=== PATIENT | female | born 1995 | race Caucasian/White ===

== ENCOUNTER 2017-04-09 | Emergency (ER) | payer OTHER ==
--- NOTE | 2017-04-09 07:43 | ED ---
General Adult HPI - General Chief complaint: Recheck/Abnormal Lab/Rx Stated complaint: MED REACTION Time Seen by Provider: 04/09/17 07:35 Source: patient, RN notes reviewed Mode of arrival: ambulatory Limitations: no limitations - History of Present Illness Initial comments: This is a 22-year-old female presents emergency department stating that she has had seizures since she's been 9 years old. Patient states she's been on Trileptal and Keppra up until about a week and a half ago. Her doctor try to switch her to the Zonegran because of the Trileptal morning was making her nauseous and occasionally vomit. Patient states ever since she's made to switch she is been feeling like she is on the verge of having a seizure every day she's had decreased sleep and she is not eating at all. Patient states the medicine is making her feel absolutely terrible. Patient states she has had one seizure a couple of days ago and has had none since. Patient states she's had no recent fever or chills. Patient denies palpitations difficulty breathing or cough. Patient denies any abdominal pain. Patient states she normally hears things before she has a seizure but since she's been on this medication she is hearingthings constantly and she feels as though she's always on the verge of having a seizure even though she's only had one. Patient is requesting to get off this medication. - Related Data Home Medications Medication Instructions Recorded Confirmed OXcarbazepine [Trileptal] 600 mg PO HS 06/28/16 04/09/17 levETIRAcetam [Keppra] 2,500 mg PO BID 06/28/16 04/09/17 Zonisamide [Zonegran] 200 mg PO HS 04/09/17 04/09/17 clonazePAM [KlonoPIN] 0.5 mg PO HS 04/09/17 04/09/17 Previous Rx's Medication Instructions Recorded Ibuprofen [Motrin] 600 mg PO Q6HR PRN #20 tab 06/28/16 Allergies Allergy/AdvReac Type Severity Reaction Status Date / Time Penicillins Allergy Unknown Verified 04/09/17 07:36 Review of Systems ROS Statement: Those systems with pertinent positive or pertinent negative responses have been documented in the HPI. ROS Other: All systems not noted in ROS Statement are negative. Past Medical History Past Medical History: Seizure Disorder Additional Past Medical History / Comment(s): RIGHT DISLOCATIONS History of Any Multi-Drug Resistant Organisms: None Reported Past Surgical History: Tonsillectomy Additional Past Surgical History / Comment(s): RIGHT SHOULDER SURGERY Past Psychological History: No Psychological Hx Reported Smoking Status: Current every day smoker Past Alcohol Use History: None Reported Past Drug Use History: None Reported General Exam - General Exam Comments Initial Comments: GENERAL: Patient is well-developed and well-nourished. Patient is nontoxic and well- hydrated and is in no acute distress. ENT: Neck is soft and supple. No significant lymphadenopathy is noted. Oropharynx is clear. Moist mucous membranes. Neck has full range of motion without eliciting any pain. EYES: The sclera were anicteric and conjunctiva were pink and moist. Extraocular movements were intact and pupils were equal round and reactive to light. Eyelids were unremarkable. PULMONARY: Unlabored respirations. Good breath sounds bilaterally. No audible rales rhonchi or wheezing was noted. CARDIOVASCULAR: There is a regular rate and rhythm without any murmurs gallops or rubs. ABDOMEN: Soft and nontender with normal bowel sounds. SKIN: Skin is clear with no lesions or rashes and otherwise unremarkable. NEUROLOGIC: Patient is alert and oriented x3. Cranial nerves II through XII are grossly intact. Motor and sensory are also intact. Normal speech, volume and content. Symmetrical smile MUSCULOSKELETAL: Normal extremities with adequate strength and full range of motion. No lower extremity swelling or edema. No calf tenderness. LYMPHATICS: No significant lymphadenopathy is noted PSYCHIATRIC: Normal psychiatric evaluation Limitations: no limitations Course Vital Signs 04/09/17 07:33 Temperature 98.4 F Pulse Rate 75 Respiratory 18 Rate Blood Pressure 111/70 O2 Sat by Pulse 100 Oximetry Medical Decision Making - Medical Decision Making I spoke with Dr. Sarmiento he wanted the patient to start Trileptal today and after 3 days she is to stop the Zonegran Disposition Clinical Impression: Adverse drug reaction Disposition: HOME SELF-CARE Condition: Good Referrals: None,Stated [Primary Care Provider] - 1-2 days Time of Disposition: 08:21
== END 2017-04-09 08:49 | disposition home or self-care (01) ==
CPT/HCPCS: 99283

== ENCOUNTER 2017-10-12 16:27 | Emergency (ER) | payer OTHER ==
[2017-10-12 16:37] VITALS: TEMP 99
[2017-10-12] MEDS ORDERED: LORazepam 1 MG TAB PO STA (18:59)
[2017-10-12 19:13] LABS: Amorphous Sediment,Urine Occasional /hpf; Appearance,Urine Cloudy (Clear); Bacteria,Urine Rare /hpf; Bilirubin,Urine Negative (Negative); Blood,Urine Negative (Negative); Color,Urine Yellow; Glucose,Urine (UA) Negative (Negative); Ketones,Urine Negative (Negative); Leukocyte Esterase,Urine Small (Negative); Mucus,Urine Moderate /hpf; Nitrite,Urine Negative (Negative); Protein,Urine Trace (Negative); RBC,Urine 1 /hpf (0-5); Specific Gravity,Urine 1.031 (1.001-1.035); Squamous Epithelial Cell,Urine 17 /hpf (0-4); Urobilinogen,Urine <2.0 mg/dL (<2.0); WBC,Urine 28 /hpf (0-5)
[2017-10-12 19:26] LABS: Phencyclidine Screen,Urine Not Detected (NotDetected); Urn Cannabinoid Scrn Detected (NotDetected)
[2017-10-12 19:27] LABS: Amphetamine Screen,Urine Not Detected (NotDetected); Barbiturate Screen,Urine Not Detected (NotDetected); Benzodiazepines Screen,Urine Not Detected (NotDetected); Cocaine Screen,Urine Detected (NotDetected); Methadone Screen, Urine Not Detected (NotDetected); Opiate Screen,Urine Not Detected (NotDetected); Oxycodone Screen, Urine Not Detected (NotDetected); Tricyclic Antidepressant,Urine Not Detected (NotDetected)
[2017-10-12 20:00] LABS: Basophils % (A) 0 %; Eosinophils # (A) 0.2 k/uL (0-0.7); Eosinophils % (A) 2 %; HCT 38.2 % (34.0-46.0); HGB 13.2 gm/dL (11.4-16.0); Lymphocytes # (A) 2.8 k/uL (1.0-4.8); Lymphocytes % (A) 31 %; MCH 30.6 pg (25.0-35.0); MCHC 34.5 g/dL (31.0-37.0); MCV 88.8 fL (80.0-100.0); Mean Platelet Volume 6.8; Monocytes # (A) 0.4 k/uL (0-1.0); Monocytes % (A) 5 %; Neutrophils # (A) 5.4 k/uL (1.3-7.7); Neutrophils % (A) 61 %; Platelet Count 249 k/uL (150-450); RDW 12.1 % (11.5-15.5); WBC 8.9 k/uL (3.8-10.6)
[2017-10-12 20:05] LABS: Anion Gap 11 mmol/L; Blood Urea Nitrogen 9 mg/dL (7-17); Calcium 10.4 mg/dL (8.4-10.2); Carbon Dioxide 28 mmol/L (22-30); Chloride 101 mmol/L (98-107); Glucose 94 mg/dL (74-99); Potassium 4.9 mmol/L (3.5-5.1); Sodium 140 mmol/L (137-145)
--- NOTE | 2017-10-12 22:28 | ED ---
General Adult HPI - General Chief complaint: Psychiatric Symptoms Stated complaint: epilepsy & hearing voices Time Seen by Provider: 10/12/17 16:44 Source: patient Mode of arrival: ambulatory Limitations: no limitations - History of Present Illness Initial comments: 22-year-old female with past medical history of seizures presented for evaluation of auditory hallucinations. She states that she started having symptoms about 3 days ago and is hearing voices emanating from inanimate objects and also from unknown etiology. The voices are not telling her to do anything or to harm other people or herself. She recognizes that the voices are not normal and that this is a problem. She has no thoughts of suicidal or homicidal intent. She states previously having similar symptoms when she was started on a new medication 4-5 months ago however symptoms resolved after the medication was discontinued and she is unsure what the medication was. She states this is very distressing to her and she does not feel comfortable enough to be home at this time. She called one of her neurologist before coming here and states that her neurologist told her not to any lab work done or any other evaluation performed until she was called. - Related Data Home Medications Medication Instructions Recorded Confirmed OXcarbazepine [Trileptal] 600 mg PO HS 06/28/16 10/12/17 levETIRAcetam [Keppra] 2,500 mg PO BID 06/28/16 10/12/17 clonazePAM [KlonoPIN] 0.5 mg PO DAILY PRN 04/09/17 10/12/17 OXcarbazepine [Trileptal] 1,200 mg PO QAM 10/12/17 10/12/17 Allergies Allergy/AdvReac Type Severity Reaction Status Date / Time Penicillins Allergy Unknown Verified 10/12/17 17:18 Review of Systems ROS Statement: Those systems with pertinent positive or pertinent negative responses have been documented in the HPI. ROS Other: All systems not noted in ROS Statement are negative. Constitutional: Denies: fever, chills Eyes: Denies: eye pain, vision change ENT: Denies: ear pain, throat pain Respiratory: Denies: cough, dyspnea Cardiovascular: Denies: chest pain, palpitations Endocrine: Denies: fatigue, polydipsia, polyuria Gastrointestinal: Denies: abdominal pain, nausea, vomiting Genitourinary: Denies: urgency, dysuria Musculoskeletal: Denies: back pain, arthralgia Skin: Denies: rash, lesions Neurological: Denies: headache, weakness Psychiatric: Reports: anxiety, auditory hallucinations. Denies: depression, visual hallucinations, homicidal thoughts, suicidal thoughts Hematological/Lymphatic: Denies: easy bleeding, easy bruising Past Medical History Past Medical History: Seizure Disorder Additional Past Medical History / Comment(s): RIGHT DISLOCATIONS History of Any Multi-Drug Resistant Organisms: None Reported Past Surgical History: Tonsillectomy Additional Past Surgical History / Comment(s): RIGHT SHOULDER SURGERY Past Psychological History: No Psychological Hx Reported Smoking Status: Current every day smoker Past Alcohol Use History: None Reported Past Drug Use History: None Reported General Exam Limitations: no limitations General appearance: alert, in no apparent distress Head exam: Present: atraumatic, normocephalic Eye exam: Present: normal appearance. Absent: scleral icterus, conjunctival injection ENT exam: Present: normal exam, normal oropharynx Neck exam: Present: normal inspection, full ROM Respiratory exam: Present: normal lung sounds bilaterally. Absent: respiratory distress Cardiovascular Exam: Present: regular rate, normal rhythm GI/Abdominal exam: Present: soft. Absent: tenderness Rectal exam: Present: deferred Extremities exam: Present: normal inspection, full ROM Back exam: Present: normal inspection, full ROM Neurological exam: Present: alert, oriented X3 Psychiatric exam: Present: anxious. Absent: flat affect, manic, homicidal ideation, suicidal ideation Skin exam: Present: warm, dry, intact Course Vital Signs 10/12/17 10/12/17 16:34 22:28 Temperature 99.0 F 99.0 F Pulse Rate 99 77 Respiratory 16 18 Rate Blood Pressure 109/66 132/62 O2 Sat by Pulse 98 99 Oximetry Medical Decision Making - Medical Decision Making 22-year-old female presenting for evaluation of auditory hallucinations. On physical examination she appears to be in no apparent distress and vital signs are stable. Physical exam is benign and reveals no significant abnormalities. Discussed the patient with her neurologist who stated that she did not tell the patient to wait for lab work prior to coming and agreed with plan to do a formal workup and have psych come to see the patient. Labs were significant for cocaine and on reevaluation the patient states that her symptoms did start after she was using cocaine. Psych cleared the patient to be discharged home. The patient stated that she felt much better at this point and relieved at expressing the truth of the situation. She was advised to keep her appointment with her neurologist for tomorrow but to return this facility if her symptoms should worsen or persist. The patient acknowledged an understanding of all information provided and agreed with this plan of care. - Lab Data Result diagrams: 10/12/17 19:15 10/12/17 19:15 Lab Results 10/12/17 10/12/17 10/12/17 Range/Units 17:30 17:30 17:38 WBC (3.8-10.6) k/uL RBC (3.80-5.40) m/uL Hgb (11.4-16.0) gm/dL Hct (34.0-46.0) % MCV (80.0-100.0) fL MCH (25.0-35.0) pg MCHC (31.0-37.0) g/dL RDW (11.5-15.5) % Plt Count (150-450) k/uL Neutrophils % % Lymphocytes % % Monocytes % % Eosinophils % % Basophils % % Neutrophils # (1.3-7.7) k/uL Lymphocytes # (1.0-4.8) k/uL Monocytes # (0-1.0) k/uL Eosinophils # (0-0.7) k/uL Basophils # (0-0.2) k/uL Sodium (137-145) mmol/L Potassium (3.5-5.1) mmol/L Chloride (98-107) mmol/L Carbon Dioxide (22-30) mmol/L Anion Gap mmol/L BUN (7-17) mg/dL Creatinine (0.52-1.04) mg/dL Est GFR (CKD-EPI)AfAm (>60 ml/min/1.73 sqM) Est GFR (CKD-EPI)NonAf (>60 ml/min/1.73 sqM) Glucose (74-99) mg/dL Calcium (8.4-10.2) mg/dL Urine Color Yellow Urine Appearance Cloudy H (Clear) Urine pH 7.0 (5.0-8.0) Ur Specific [place] 1.031 (1.001-1.035) Urine Protein Trace H (Negative) Urine Glucose (UA) Negative (Negative) Urine Ketones Negative (Negative) Urine Blood Negative (Negative) Urine Nitrite Negative (Negative) Urine Bilirubin Negative (Negative) Urine Urobilinogen <2.0 (<2.0) mg/dL Ur Leukocyte Esterase Small H (Negative) Urine RBC 1 (0-5) /hpf Urine WBC 28 H (0-5) /hpf Ur Squamous Epith Cells 17 H (0-4) /hpf Amorphous Sediment Occasional H (None) /hpf Urine Bacteria Rare H (None) /hpf Urine Mucus Moderate H (None) /hpf Urine HCG, Qual Not Detected (Not Detectd) Urine Opiates Screen Not Detected (NotDetected) Ur Oxycodone Screen Not Detected (NotDetected) Urine Methadone Screen Not Detected (NotDetected) Ur Propoxyphene Screen Not Detected (NotDetected) Ur Barbiturates Screen Not Detected (NotDetected) U Tricyclic Antidepress Not Detected (NotDetected) Ur Phencyclidine Scrn Not Detected (NotDetected) Ur Amphetamines Screen Not Detected (NotDetected) U Methamphetamines Scrn Not Detected (NotDetected) U Benzodiazepines Scrn Not Detected (NotDetected) Urine Cocaine Screen Detected H (NotDetected) U Marijuana (THC) Screen Detected H (NotDetected) 10/12/17 10/12/17 Range/Units 19:15 19:15 WBC 8.9 (3.8-10.6) k/uL RBC 4.30 (3.80-5.40) m/uL Hgb 13.2 (11.4-16.0) gm/dL Hct 38.2 (34.0-46.0) % MCV 88.8 (80.0-100.0) fL MCH 30.6 (25.0-35.0) pg MCHC 34.5 (31.0-37.0) g/dL RDW 12.1 (11.5-15.5) % Plt Count 249 (150-450) k/uL Neutrophils % 61 % Lymphocytes % 31 % Monocytes % 5 % Eosinophils % 2 % Basophils % 0 % Neutrophils # 5.4 (1.3-7.7) k/uL Lymphocytes # 2.8 (1.0-4.8) k/uL Monocytes # 0.4 (0-1.0) k/uL Eosinophils # 0.2 (0-0.7) k/uL Basophils # 0.0 (0-0.2) k/uL Sodium 140 (137-145) mmol/L Potassium 4.9 (3.5-5.1) mmol/L Chloride 101 (98-107) mmol/L Carbon Dioxide 28 (22-30) mmol/L Anion Gap 11 mmol/L BUN 9 (7-17) mg/dL Creatinine 0.60 (0.52-1.04) mg/dL Est GFR (CKD-EPI)AfAm >90 (>60 ml/min/1.73 sqM) Est GFR (CKD-EPI)NonAf >90 (>60 ml/min/1.73 sqM) Glucose 94 (74-99) mg/dL Calcium 10.4 H (8.4-10.2) mg/dL Urine Color Urine Appearance (Clear) Urine pH (5.0-8.0) Ur Specific [place] (1.001-1.035) Urine Protein (Negative) Urine Glucose (UA) (Negative) Urine Ketones (Negative) Urine Blood (Negative) Urine Nitrite (Negative) Urine Bilirubin (Negative) Urine Urobilinogen (<2.0) mg/dL Ur Leukocyte Esterase (Negative) Urine RBC (0-5) /hpf Urine WBC (0-5) /hpf Ur Squamous Epith Cells (0-4) /hpf Amorphous Sediment (None) /hpf Urine Bacteria (None) /hpf Urine Mucus (None) /hpf Urine HCG, Qual (Not Detectd) Urine Opiates Screen (NotDetected) Ur Oxycodone Screen (NotDetected) Urine Methadone Screen (NotDetected) Ur Propoxyphene Screen (NotDetected) Ur Barbiturates Screen (NotDetected) U Tricyclic Antidepress (NotDetected) Ur Phencyclidine Scrn (NotDetected) Ur Amphetamines Screen (NotDetected) U Methamphetamines Scrn (NotDetected) U Benzodiazepines Scrn (NotDetected) Urine Cocaine Screen (NotDetected) U Marijuana (THC) Screen (NotDetected) Disposition Clinical Impression: Cocaine abuse, Auditory hallucinations, Acute anxiety Disposition: HOME SELF-CARE Condition: Stable Instructions: Hallucinations (ED) Referrals: None,Stated [Primary Care Provider] - 1-2 days Time of Disposition: 22:28
[2017-10-12 22:30] VITALS: BP 132/62; PULSE 77; RESP 18
== END 2017-10-12 22:39 | disposition home or self-care (01) ==
LOC: EC 16:27
DX: F14.10 Cocaine abuse, uncomplicated (principal); R44.0 Auditory hallucinations; F41.9 Anxiety disorder, unspecified; G40.909 Epilepsy, unspecified, not intractable, without status epilepticus; F17.200 Nicotine dependence, unspecified, uncomplicated; Z79.899 Other long term (current) drug therapy; Z88.0 Allergy status to penicillin
CPT/HCPCS: 36415; 80048; 80177; 80183; 80306; 81001; 81025; 85025; 99285

== ENCOUNTER 2019-03-09 08:28 | Emergency (ER) | payer BC, OTHER ==
[2019-03-09] MEDS ORDERED: PROPOFOL 10 MG/ML 20 ML VIAL IV ONE (08:48)
--- NOTE | 2019-03-09 08:52 | ED ---
General Adult HPI <Juancarlos Garcia - Last Filed: 03/09/19 09:56> - General Source: patient, RN notes reviewed Mode of arrival: ambulatory Limitations: no limitations <Hector Reynaga - Last Filed: 03/09/19 10:03> - General Chief complaint: Extremity Injury, Upper Stated complaint: Shoulder Injury Time Seen by Provider: 03/09/19 08:37 - History of Present Illness Initial comments: 24-year-old female presents to the emergency department for a chief complaint of dislocation of the right shoulder. Patient states that she was playing with her son when she felt her right shoulder dislocate. States this happened several times prior to this. States she had surgery on it several years ago to help w ith this but unfortunately still has dislocations. Denies any other injuries.Patient has no other complaints at this time including shortness of breath, chest pain, abdominal pain, nausea or vomiting, headache, or visual changes. (Hector Reynaga) - Related Data Home Medications Medication Instructions Recorded Confirmed OXcarbazepine [Trileptal] 600 mg PO HS 06/28/16 10/12/17 levETIRAcetam [Keppra] 2,500 mg PO BID 06/28/16 10/12/17 OXcarbazepine [Trileptal] 1,200 mg PO QAM 10/12/17 10/12/17 Perampanel [Fycompa] 2 mg PO BID 01/27/18 01/27/18 Allergies Allergy/AdvReac Type Severity Reaction Status Date / Time Penicillins Allergy Unknown Verified 03/09/19 08:33 Review of Systems ROS Other: All systems not noted in ROS Statement are negative. <Juancarlos Garcia - Last Filed: 03/09/19 09:56> ROS Other: All systems not noted in ROS Statement are negative. <Hector Reynaga - Last Filed: 03/09/19 10:03> ROS Statement: Those systems with pertinent positive or pertinent negative responses have been documented in the HPI. Past Medical History Past Medical History: Seizure Disorder Additional Past Medical History / Comment(s): RIGHT DISLOCATIONS History of Any Multi-Drug Resistant Organisms: None Reported Past Surgical History: Tonsillectomy Additional Past Surgical History / Comment(s): RIGHT SHOULDER SURGERY, brain surgery for seizure disorders Past Psychological History: No Psychological Hx Reported Smoking Status: Former smoker Past Alcohol Use History: None Reported Past Drug Use History: Marijuana <Hector Reynaga P - Last Filed: 03/09/19 10:03> General Exam Limitations: no limitations General appearance: alert, in no apparent distress Head exam: Present: atraumatic, normocephalic, normal inspection Eye exam: Present: normal appearance, PERRL, EOMI. Absent: scleral icterus, conjunctival injection, periorbital swelling ENT exam: Present: normal exam, mucous membranes moist Neck exam: Present: normal inspection, full ROM. Absent: tenderness, meningismus, lymphadenopathy Respiratory exam: Present: normal lung sounds bilaterally. Absent: respiratory distress, wheezes, rales, rhonchi, stridor Cardiovascular Exam: Present: regular rate, normal rhythm, normal heart sounds. Absent: bradycardia, tachycardia, irregular rhythm Extremities exam: Present: normal capillary refill (Capillary refill less than 2 seconds, radial pulse 2+ the right upper extremity.). Absent: full ROM (Patient unable to move right shoulder due to pain) <RonnellHector P - Last Filed: 03/09/19 10:03> Course Vital Signs 03/09/19 03/09/19 03/09/19 08:33 09:37 09:45 Temperature 97.9 F Pulse Rate 74 69 67 Respiratory 18 15 14 Rate Blood Pressure 109/72 114/92 116/82 O2 Sat by Pulse 96 98 99 Oximetry 03/09/19 09:52 Temperature Pulse Rate 73 Respiratory 14 Rate Blood Pressure 111/72 O2 Sat by Pulse 99 Oximetry Procedures - Orthopedic Joint Reduction Joint #1 Consent Obtained: verbal consent, written consent Side: right Joint Reduction Location: shoulder Analgesia: procedural sedation Shoulder Technique Used (if applicable): external rotation Post-Reduction Neuro Exam: intact Post-Reduction Vascular Exam: intact Post Reduction X-Ray Obtained: Yes Post Reduction X-Ray Results: reduced Splint Applied: Yes Patient Tolerated Procedure: well - Procedural Sedation Procedural Sedation Start Time: 09:37 Procedural Sedation Stop Time: 09:52 Indications: fracture/dislocation reduction ASA Class: I Mallampati Airway Score: 1 Time of Last PO Intake: 06:00 Preparation: monitoring tech applied, pulse oximeter, capnometry used, supplemental O2 applied, suction/airway equipment at bedside, IV secured IV Propofol Dose (mgs): 100 Complications: none Patient Tolerated Procedure: well <Juancarlos Garcia - Last Filed: 03/09/19 09:56> Medical Decision Making <Hector Reynaga - Last Filed: 03/09/19 10:03> - Medical Decision Making 24-year-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 Patient has had this happen several times before. Patient was playing with her son when it dislocated. On exam Norvasc status is intact in the right upper extremity. Shoulder does appear dislocated. I did attempt to reduce this without sedation however patient did not tolerate. X-ray shows an anterior subcoracoid glenohumeral joint dislocation. Image reviewed. After hCG was obtained and was negative patient was consciously sedated and shoulder was reduced without any difficulty or complication. Shoulder immobilizer was applied. She was monitored after conscious sedation and then discharged home in stable condition. Patient believes she follows with [facility]. She will follow up with him and return here she has any worsening symptoms. (Hector Reynaga) - Lab Data Lab Results 03/09/19 Range/Units 08:54 Urine HCG, Qual Not Detected (Not Detectd) Disposition <Juancarlos Garcia - Last Filed: 03/09/19 09:56> Is patient prescribed a controlled substance at d/c from ED?: No Time of Disposition: 10:03 <Hector Reynaga - Last Filed: 03/09/19 10:03> Clinical Impression: Dislocation of shoulder region Disposition: HOME SELF-CARE Condition: Good Instructions (If sedation given, give patient instructions): Moderate Sedation (ED), Shoulder Dislocation (ED) Additional Instructions: Please use shoulder immobilizer. Please follow-up with orthopedics in one to 2 days. Please return to the emergency department if you have any worsening symptoms. Referrals: Trenton Fuentes MD [STAFF PHYSICIAN] - 1-2 days Norma Sanches MD [STAFF PHYSICIAN] - 1-2 days
--- NOTE | 2019-03-09 09:32 | XR ---
EXAMINATION TYPE: XR shoulder complete RT DATE OF EXAM: 03/09/2019 COMPARISON: 06/28/2016 HISTORY: 24-year-old female shoulder pain, issues with dislocating shoulder, surgery 7 years ago. TECHNIQUE: 3 views FINDINGS: There is an anterior, subcoracoid glenohumeral joint dislocation. There may be mild joint space narro wing at the AC joint. No acute fracture. IMPRESSION: Anterior subcoracoid glenohumeral joint dislocation.
--- NOTE | 2019-03-09 10:01 | XR ---
EXAMINATION TYPE: XR shoulder limited RT DATE OF EXAM: 03/09/2019 COMPARISON: Earlier today HISTORY: 24-year-old female with pain, exam post reduction TECHNIQUE: Portable AP view FINDINGS: Interval reduction of the glenoid humeral joint. There may be a shallow Hill-Sachs deformity. Some cy stic change along the anterior glenoid was present on the 2016 exam as well. IMPRESSION: 1. Interval reduction of the glenohumeral joint. There may be a shallow Hill-Sachs deformity. 2. Some cystic change along the anterior glenoid was present previously and could be postsurgical or chronic posttraumatic.
[2019-03-09 10:50] VITALS: BP 114/77; PULSE 69; RESP 11; TEMP 98.2
== END 2019-03-09 10:42 | disposition home or self-care (01) ==
LOC: EC 08:28
DX: M24.411 Recurrent dislocation, right shoulder (principal); G40.909 Epilepsy, unspecified, not intractable, without status epilepticus; Z98.890 Other specified postprocedural states; Z88.0 Allergy status to penicillin; Z79.899 Other long term (current) drug therapy; Z87.891 Personal history of nicotine dependence; Y93.72 Activity, wrestling
CPT/HCPCS: 81025; 73020; 73030; 99283; 99152; 23650; J2704

== ENCOUNTER → 2019-07-23 | Outpatient (CLI) | payer BC, OTHER ==
[2019-07-23 12:49] LABS: HCT 36.4 % (34.0-46.0); HGB 12.6 gm/dL (11.4-16.0); MCH 31.9 pg (25.0-35.0); MCHC 34.6 g/dL (31.0-37.0); MCV 92.2 fL (80.0-100.0); Mean Platelet Volume 7.3; Platelet Count 254 k/uL (150-450); RBC 3.95 m/uL (3.80-5.40); RDW 12.3 % (11.5-15.5); WBC 8.4 k/uL (3.8-10.6)
[2019-07-23 19:42] LABS: African American GFR (CKD) 148.9 (60.0-200.0); Non-African American GFR(CKD) 128.5 (60.0-200.0)
[2019-07-23 20:10] LABS: Hepatitis B Surface Antigen Non-Reactive (Non-Reactive)
[2019-07-24 13:35] LABS: C. trachomatis,PCR Negative (Neg,Equiv); Chlamydia trachomatis Source Urine; N. gonorrhoeae,PCR Negative (Neg,Equiv); Neisseria Source Urine
== END | disposition home or self-care (01) ==
LOC: LABWHC1 11:50
PROVIDERS: ATTEND Obstetrics & Gynecology
DX: Z34.81 Encounter for supervision of other normal pregnancy, first trimester (principal); Z3A.00 Weeks of gestation of pregnancy not specified
CPT/HCPCS: 36415; 82565; 82947; 85027; 86762; 86780; 86850; 86900; 86901; 87340; 87491; 87591

== ENCOUNTER → 2019-10-26 | Outpatient (CLI) | payer BC, MEDICARE ==
--- NOTE | 2019-10-26 12:13 | US ---
EXAMINATION TYPE: Transabdominal DATE OF EXAM: 10/26/2019 9:07 AM COMPARISON: NONE CLINICAL HISTORY: O20.0 Threatened . Intermittent bleeding x couple weeks, 2, para 1 EXAM PERFORMED: Transabdominal (TA) EXAM MEASUREMENTS: GESTATIONAL AGE / DATING Physician Established: Not established yet Dates by LMP: Unknown Dates by First Scan: This is 1st scan Dates by Current Scan for: (8 weeks/4 days) EDC: 06/02/2020 MATERNAL ANATOMY Uterus: 10.2 x 6.0 x 7.7cm Right Ovary: 3.3 x 2.2 x 2.9cm Left Ovary: 2.4 x 1.5 x 1.4cm Post CDS / Adnexa: small amount of free fluid in posterior cul de sac Presence of free fluid: yes Presence of corpus luteal cyst: right ovary: 2.2 x 1.9 x 1.8cm Presence of subchorionic bleed: 2.7 x 0.7 x 1.7cm GESTATION / SURVEY CRL: 2.0cm (8 weeks/4 days) Yolk Sac (normal less than 6mm): 3.8 Heart Rate: 171 bpm Rhythm: Normal IUP: Viable IUP Date of LMP: Unknown Beta HcG (if available): Not available at time of exam. Viable single IUP measuring 8 weeks 4 days with a heart rate of 171bpm and an estimated delivery date of 06/02/2020. Crescentic hypoechoic focus measuring 2.7 x 0.7 x 1.7 cm noted as described. IMPRESSION: Viable single IUP measuring 8 weeks 4 days with a heart rate of 171bpm and an estimated delivery date of 06/02/2020. Small subchorionic hemorrhage suspected.
== END | disposition home or self-care (01) ==
LOC: RADUSWWP 08:46
PROVIDERS: ATTEND Family Medicine
DX: Z3A.08 8 weeks gestation of pregnancy (principal)
CPT/HCPCS: 76801

== ENCOUNTER 2020-03-19 19:52 | Emergency (ER) | payer BC ==
[2020-03-19] MEDS ORDERED: MORPHINE SULFATE 4 MG/ML SYRINGE IVP STA (20:17)
--- NOTE | 2020-03-19 20:20 | ED ---
General Adult HPI <AjayBa - Last Filed: 03/19/20 21:22> - General Source: patient, family, RN notes reviewed, old records reviewed Mode of arrival: ambulatory Limitations: no limitations <Joan Taylor - Last Filed: 03/19/20 21:31> - General Chief complaint: Extremity Injury, Upper Stated complaint: R shoulder injury Time Seen by Provider: 03/19/20 20:09 - History of Present Illness Initial comments: Patient is a 25-year-old female who presents emergency department today for evaluation for right shoulder dislocation. Patient reports that she has had history of frequent dislocations. She states that the last time this occurred was a few months ago. She states each time she's had it dislocated she's required sedation and have it reduced. Patient states that she did have previous shoulder surgery but it did not seem to help with the dislocations. Patient reports that she lifted her arm above her head today which caused him to dislocate. Patient states that she has no other complaints. She states that she is currently on her menstrual cycle and not . (Joan aTylor) - Related Data Home Medications Medication Instructions Recorded Confirmed OXcarbazepine [Trileptal] 600 mg PO HS 06/28/16 10/12/17 levETIRAcetam [Keppra] 2,500 mg PO BID 06/28/16 10/12/17 OXcarbazepine [Trileptal] 1,200 mg PO QAM 10/12/17 10/12/17 Perampanel [Fycompa] 2 mg PO BID 01/27/18 01/27/18 Allergies Allergy/AdvReac Type Severity Reaction Status Date / Time Penicillins Allergy Unknown Verified 03/19/20 20:08 Review of Systems ROS Other: All systems not noted in ROS Statement are negative. <Ba Moss - Last Filed: 03/19/20 21:22> ROS Other: All systems not noted in ROS Statement are negative. <Joan Taylor - Last Filed: 03/19/20 21:31> ROS Statement: Those systems with pertinent positive or pertinent negative responses have been documented in the HPI. Past Medical History Past Medical History: Seizure Disorder Additional Past Medical History / Comment(s): RIGHT DISLOCATIONS History of Any Multi-Drug Resistant Organisms: None Reported Past Surgical History: Tonsillectomy Additional Past Surgical History / Comment(s): RIGHT SHOULDER SURGERY, brain surgery for seizure disorders Past Psychological History: No Psychological Hx Reported Smoking Status: Never smoker Past Alcohol Use History: None Reported Past Drug Use History: Marijuana <BrandonJoan - Last Filed: 03/19/20 21:31> General Exam Limitations: no limitations General appearance: alert, in no apparent distress Head exam: Present: atraumatic, normocephalic, normal inspection Eye exam: Present: normal appearance, PERRL, EOMI. Absent: scleral icterus, conjunctival injection, periorbital swelling ENT exam: Present: normal exam, mucous membranes moist Neck exam: Present: normal inspection. Absent: tenderness, meningismus, lymphadenopathy Respiratory exam: Present: normal lung sounds bilaterally. Absent: respiratory distress, wheezes, rales, rhonchi, stridor Cardiovascular Exam: Present: regular rate, normal rhythm, normal heart sounds. Absent: systolic murmur, diastolic murmur, rubs, gallop, clicks GI/Abdominal exam: Present: soft, normal bowel sounds. Absent: distended, tenderness, guarding, rebound, rigid Extremities exam: Present: normal inspection, full ROM, normal capillary refill. Absent: tenderness, pedal edema, joint swelling, calf tenderness Right Shoulder Exam: Present: dislocation. Absent: normal inspection Upper Arm exam: Present: normal inspection, full ROM Elbow exam: Present: normal inspection, full ROM Forearm Wrist exam: Present: normal inspection, full ROM Hand Wrist exam: Present: normal inspection, full ROM Neuro motor exam: Present: wrist extension intact Vascular: Present: normal capillary refill Back exam: Present: normal inspection Neurological exam: Present: alert, oriented X3, CN II-XII intact Psychiatric exam: Present: normal affect, normal mood Skin exam: Present: warm, dry, intact, normal color. Absent: rash <Mariah Taylorily - Last Filed: 03/19/20 21:31> Course Vital Signs 03/19/20 03/19/20 03/19/20 20:04 21:00 21:05 Temperature 99.1 F Pulse Rate 69 70 60 Respiratory 20 18 18 Rate Blood Pressure 119/88 137/76 117/68 O2 Sat by Pulse 99 100 100 Oximetry 03/19/20 03/19/20 03/19/20 21:10 21:15 21:20 Temperature Pulse Rate 59 L 72 70 Respiratory 18 18 18 Rate Blood Pressure 116/71 125/78 129/81 O2 Sat by Pulse 97 98 98 Oximetry Procedures - Procedural Sedation Procedural Sedation Start Time: 21:04 Procedural Sedation Stop Time: 21:08 Indications: fracture/dislocation reduction ASA Class: I Mallampati Airway Score: 1 Preparation: phototypesetting equipment monitor applied, pulse oximeter, capnometry used, supplemental O2 applied, reversal agents at bedside, suction/airway equipment at bedside, IV secured IV Propofol Dose (mgs): 130 Complications: none Patient Tolerated Procedure: well <Ba Moss - Last Filed: 03/19/20 21:22> - Orthopedic Joint Reduction Joint #1 Side: right Joint Reduction Location: shoulder Analgesia: procedural sedation Technique Used: traction/counter-traction Post-Reduction Neuro Exam: intact Post-Reduction Vascular Exam: intact Post Reduction X-Ray Obtained: Yes Post Reduction X-Ray Results: reduced Splint Applied: Yes (sling) Patient Tolerated Procedure: well, no complications <Joan Taylor - Last Filed: 03/19/20 21:31> - Procedural Sedation Additional Comments: He did require 2 doses of propofol 60 mg initially followed by 70 mg that she was not sedated enough for the procedure the second one did accomplish is the procedure well without difficulty. Patient tolerated well she did awaken at 2108 a reevaluated. 0 she is awake alert oriented 3 (Ba Moss) Medical Decision Making - Radiology Data Radiology results: report reviewed <Joan Taylor - Last Filed: 03/19/20 21:31> - Medical Decision Making 25-year-old female with recurrent right shoulder dislocations. She presented today with shoulder dislocation after looking arm above the head. She would not allow reduction without sedation. Patient was procedurally sedated and shoulder was easily reduced. She is placed in a sling. Advised orthopedic follow-up. Advise close return parameters. Patient understands treatment plan. (Joan Taylor) - Radiology Data Shoulder x-ray showed recurrent anterior glenohumeral joint dislocation. Improved positioning of the humeral head relative to glenoid cavity and frontal be consistent with successful interval reduction of the anterior glenohumeral joint dislocation. No fractures noted. Overlying breath strep is present. (Joan Taylor) Disposition <Ba Moss - Last Filed: 03/19/20 21:22> Is patient prescribed a controlled substance at d/c from ED?: No Time of Disposition: 21:30 <BrandonJoan - Last Filed: 03/19/20 21:31> Clinical Impression: Recurrent shoulder dislocation Disposition: HOME SELF-CARE Condition: Good Instructions (If sedation given, give patient instructions): Moderate Sedation (ED), Shoulder Dislocation (ED) Additional Instructions: Patient advised to have follow-up with orthopedic. Remain in the splint until seen by orthopedic. No heavy lifting or overhead movements. Recommended sleeping a recliner chair. Referrals: Jeremy Fields MD [REFERRING] - 1-2 days Mike Hubbard MD [STAFF PHYSICIAN] - 1-2 days
[2020-03-19] MEDS ORDERED: KETOROLAC 15 MG/ML 1 ML VIAL IVP STA (20:48)
--- NOTE | 2020-03-19 20:49 | XR ---
EXAMINATION TYPE: XR shoulder complete RT DATE OF EXAM: 03/19/2020 CLINICAL HISTORY: History of multiple dislocations and surgery with new pain after suspected dislocat ion today. TECHNIQUE: Three views of the right shoulder are obtained. COMPARISON: Prior right shoulder x-ray March 09, 2019. FINDINGS: There is inferior medial anterior positioning of the humeral head relative to glenoid cavi ty. No acute fracture is seen. Stable mild to moderate narrowing acromial navicular joint. The visua lized ribs are intact and unremarkable. IMPRESSION: There is recurrent anterior glenohumeral joint dislocation.
[2020-03-19] MEDS: PROPOFOL 10 MG/ML 20 ML VIAL IV ONE ×2 (21:03→21:07)
--- NOTE | 2020-03-19 21:18 | XR ---
EXAMINATION TYPE: XR shoulder limited RT DATE OF EXAM: 03/19/2020 COMPARISON: Right shoulder x-ray earlier today. HISTORY: Anterior dislocation status post reduction. TECHNIQUE: Single frontal view right shoulder. FINDINGS: Improved positioning of humeral head relative to glenoid cavity on the frontal view consist ent with successful interval reduction of the anterior glenohumeral joint dislocation. No fracture is noted. Overlying bra strap is present. IMPRESSION: As above
[2020-03-19 21:52] VITALS: BP 121/80; PULSE 72; RESP 20; TEMP 98.1
== END 2020-03-19 21:48 | disposition home or self-care (01) ==
LOC: EC 19:52
DX: M24.411 Recurrent dislocation, right shoulder (principal); G40.909 Epilepsy, unspecified, not intractable, without status epilepticus; Z79.899 Other long term (current) drug therapy; Z88.0 Allergy status to penicillin; X50.1XXA Overexertion from prolonged static or awkward postures, initial encounter
CPT/HCPCS: 73020; 73030; 99284; 96374; 23650; J1885; J2704

== ENCOUNTER → 2020-04-25 | Outpatient (CLI) | payer BC, OTHER ==
--- NOTE | 2020-05-20 10:08 | P.CEMON ---
Diagnosis Palpitations Event monitor shows sinus mechanism Sinus tachycardia No arrhythmias
--- NOTE | 2020-05-20 11:23 | EM ---
Diagnosis Palpitations Event monitor shows sinus mechanism Sinus tachycardia No arrhythmias MTDD
== END | disposition home or self-care (01) ==
LOC: RADECHMAIN 11:57
PROVIDERS: ATTEND Family Medicine
DX: R00.0 Tachycardia, unspecified (principal)
CPT/HCPCS: 93270

== ENCOUNTER 2020-07-15 12:35 | Emergency (ER) | payer BC, OTHER ==
[2020-07-15 12:40] VITALS: TEMP 98.9
--- NOTE | 2020-07-15 13:12 | ED ---
General Adult HPI - General Chief complaint: Nausea/Vomiting/Diarrhea Stated complaint: SOB, nausea Source: patient Mode of arrival: wheelchair Limitations: no limitations - History of Present Illness Initial comments: 25-year-old female with past history of seizure disorder who presents emergency Department with reported headache, chest pain, cough, nausea and vomiting. Patient is concerned for elevated. Denies any fevers or chills. No concern for . Denies previous history of cardiac disease. No abdominal pain. Denies any changes in her bowel or bladder habits. No other alleviating, precipitating or modifying factors - Related Data Home Medications Medication Instructions Recorded Confirmed OXcarbazepine [Trileptal] 600 mg PO DAILY 06/28/16 07/15/20 OXcarbazepine [Trileptal] 1,200 mg PO HS 10/12/17 07/15/20 Brivaracetam [Briviact] 200 mg PO DAILY 07/15/20 07/15/20 PARoxetine [Paxil] 10 mg PO DAILY 07/15/20 07/15/20 Perampanel [Fycompa] 4 mg PO DAILY 07/15/20 07/15/20 Perampanel [Fycompa] 6 mg PO HS 07/15/20 07/15/20 QUEtiapine [SEROquel] 100 mg PO HS 07/15/20 07/15/20 Previous Rx's Medication Instructions Recorded Famotidine [Pepcid] 20 mg PO BID #28 tablet 07/15/20 Ondansetron Odt [Zofran Odt] 4 mg PO Q8HR PRN #10 tab 07/15/20 Allergies Allergy/AdvReac Type Severity Reaction Status Date / Time Penicillins Allergy Unknown Verified 07/15/20 13:36 Review of Systems ROS Statement: Those systems with pertinent positive or pertinent negative responses have been documented in the HPI. ROS Other: All systems not noted in ROS Statement are negative. Past Medical History Past Medical History: Seizure Disorder Additional Past Medical History / Comment(s): RIGHT DISLOCATIONS History of Any Multi-Drug Resistant Organisms: None Reported Past Surgical History: Tonsillectomy Additional Past Surgical History / Comment(s): RIGHT SHOULDER SURGERY, brain surgery for seizure disorders Past Psychological History: No Psychological Hx Reported Smoking Status: Never smoker Past Alcohol Use History: None Reported Past Drug Use History: Marijuana General Exam Limitations: no limitations Course Vital Signs 07/15/20 07/15/20 12:37 14:59 Temperature 98.9 F Pulse Rate 64 87 Respiratory 18 16 Rate Blood Pressure 126/76 126/79 O2 Sat by Pulse 98 99 Oximetry EKG Findings - EKG Comments: EKG Findings:: EKG demonstrates normal sinus rhythm the rate of 68. CA interval 132. QRS 108. QTC of 416. No acute ST segment elevations or depressions concerning for ischemic changes Medical Decision Making - Medical Decision Making Upon arrival patient is placed into room 14. A thorough history and physical exam was performed. Peripheral IV is established. The patient was given a liter bolus of normal saline informal grams of Zofran. Laboratory studies are conducted and reviewed. Sodium mildly low at 131. Urinalysis demonstrates 2+ ketones. Rare bacteria. This is sent for urine culture. Covid and influenza are negative. Chest x-ray demonstrates no acute process. Results are discussed with the patient. I will send a test for PCR. She is instructed to quarantine until these results come back. I will send the patient a prescription of Zofran to the pharmacy. Also requesting reflux medications the patient is given a prescription for Pepcid. She needs to follow-up with her primary care doctor in 2-4 days for reevaluation. Return to the emergency room for any new or worsenin g symptoms. Patient was in agreement with the treatment plan was discharged home in stable condition - Lab Data Result diagrams: 07/15/20 13:30 07/15/20 13:58 Lab Results 07/15/20 07/15/20 07/15/20 Range/Units 13:30 13:30 13:30 WBC 6.2 (3.8-10.6) k/uL RBC 4.36 (3.80-5.40) m/uL Hgb 13.4 (11.4-16.0) gm/dL Hct 38.8 (34.0-46.0) % MCV 88.9 (80.0-100.0) fL MCH 30.7 (25.0-35.0) pg MCHC 34.5 (31.0-37.0) g/dL RDW 12.1 (11.5-15.5) % Plt Count 285 (150-450) k/uL MPV 7.5 Neutrophils % 56 % Lymphocytes % 31 % Monocytes % 6 % Eosinophils % 4 % Basophils % 1 % Neutrophils # 3.5 (1.3-7.7) k/uL Lymphocytes # 1.9 (1.0-4.8) k/uL Monocytes # 0.4 (0-1.0) k/uL Eosinophils # 0.2 (0-0.7) k/uL Basophils # 0.0 (0-0.2) k/uL Sodium (137-145) mmol/L Potassium (3.5-5.1) mmol/L Chloride (98-107) mmol/L Carbon Dioxide (22-30) mmol/L Anion Gap mmol/L BUN (7-17) mg/dL Creatinine (0.52-1.04) mg/dL Est GFR (CKD-EPI)AfAm (>60 ml/min/1.73 sqM) Est GFR (CKD-EPI)NonAf (>60 ml/min/1.73 sqM) Glucose (74-99) mg/dL Calcium (8.4-10.2) mg/dL Total Bilirubin (0.2-1.3) mg/dL AST (14-36) U/L ALT (4-34) U/L Alkaline Phosphatase (38-126) U/L Total Protein (6.3-8.2) g/dL Albumin (3.5-5.0) g/dL Lipase (23-300) U/L Urine Color Urine Appearance (Clear) Urine pH (5.0-8.0) Ur Specific [place] (1.001-1.035) Urine Protein (Negative) Urine Glucose (UA) (Negative) Urine Ketones (Negative) Urine Blood (Negative) Urine Nitrite (Negative) Urine Bilirubin (Negative) Urine Urobilinogen (<2.0) mg/dL Ur Leukocyte Esterase (Negative) Urine RBC (0-5) /hpf Urine WBC (0-5) /hpf Ur Squamous Epith Cells (0-4) /hpf Urine Bacteria (None) /hpf Urine Mucus (None) /hpf Urine HCG, Qual (Not Detectd) Coronavirus (PCR) Not Detected (Not Detectd) Influenza Type A RNA Not Detected (Not Detectd) Influenza Type B (PCR) Not Detected (Not Detectd) 07/15/20 07/15/20 07/15/20 Range/Units 13:35 13:35 13:58 WBC (3.8-10.6) k/uL RBC (3.80-5.40) m/uL Hgb (11.4-16.0) gm/dL Hct (34.0-46.0) % MCV (80.0-100.0) fL MCH (25.0-35.0) pg MCHC (31.0-37.0) g/dL RDW (11.5-15.5) % Plt Count (150-450) k/uL MPV Neutrophils % % Lymphocytes % % Monocytes % % Eosinophils % % Basophils % % Neutrophils # (1.3-7.7) k/uL Lymphocytes # (1.0-4.8) k/uL Monocytes # (0-1.0) k/uL Eosinophils # (0-0.7) k/uL Basophils # (0-0.2) k/uL Sodium 131 L (137-145) mmol/L Potassium 4.0 (3.5-5.1) mmol/L Chloride 100 (98-107) mmol/L Carbon Dioxide 25 (22-30) mmol/L Anion Gap 6 mmol/L BUN 6 L (7-17) mg/dL Creatinine 0.55 (0.52-1.04) mg/dL Est GFR (CKD-EPI)AfAm >90 (>60 ml/min/1.73 sqM) Est GFR (CKD-EPI)NonAf >90 (>60 ml/min/1.73 sqM) Glucose 97 (74-99) mg/dL Calcium 9.2 (8.4-10.2) mg/dL Total Bilirubin 0.5 (0.2-1.3) mg/dL AST 20 (14-36) U/L ALT 12 (4-34) U/L Alkaline Phosphatase 56 (38-126) U/L Total Protein 7.8 (6.3-8.2) g/dL Albumin 4.5 (3.5-5.0) g/dL Lipase 53 (23-300) U/L Urine Color Yellow Urine Appearance Clear (Clear) Urine pH 6.5 (5.0-8.0) Ur Specific [place] 1.024 (1.001-1.035) Urine Protein Trace H (Negative) Urine Glucose (UA) Negative (Negative) Urine Ketones 2+ H (Negative) Urine Blood Small H (Negative) Urine Nitrite Negative (Negative) Urine Bilirubin Negative (Negative) Urine Urobilinogen <2.0 (<2.0) mg/dL Ur Leukocyte Esterase Trace H (Negative) Urine RBC 1 (0-5) /hpf Urine WBC 1 (0-5) /hpf Ur Squamous Epith Cells 5 H (0-4) /hpf Urine Bacteria Rare H (None) /hpf Urine Mucus Few H (None) /hpf Urine HCG, Qual Not Detected (Not Detectd) Coronavirus (PCR) (Not Detectd) Influenza Type A RNA (Not Detectd) Influenza Type B (PCR) (Not Detectd) Disposition Clinical Impression: Nausea & vomiting Disposition: HOME SELF-CARE Condition: Stable Instructions (If sedation given, give patient instructions): Acute Nausea and Vomiting (ED) Additional Instructions: We will call you with positive results of the Covid test. Take the nausea medications and the reflux medications as directed. Follow-up with your doctor in 2-4 days. Return to the emergency room for any new or worsening symptoms Prescriptions: Famotidine [Pepcid] 20 mg PO BID #28 tablet Ondansetron Odt [Zofran Odt] 4 mg PO Q8HR PRN #10 tab PRN Reason: Nausea Is patient prescribed a controlled substance at d/c from ED?: No Referrals: Oumou Montiel MD [Primary Care Provider] - 1-2 days Time of Disposition: 14:51
[2020-07-15] MEDS ORDERED: ONDANSETRON 4 MG/2 ML VIAL IVP STA (13:23)
[2020-07-15] MEDS ORDERED: SODIUM CHLORIDE 0.9% 1,000 ML IV STA (13:23)
[2020-07-15 13:41] LABS: Basophils % (A) 1 %; Eosinophils # (A) 0.2 k/uL (0-0.7); Eosinophils % (A) 4 %; HCT 38.8 % (34.0-46.0); HGB 13.4 gm/dL (11.4-16.0); Lymphocytes # (A) 1.9 k/uL (1.0-4.8); Lymphocytes % (A) 31 %; MCH 30.7 pg (25.0-35.0); MCHC 34.5 g/dL (31.0-37.0); MCV 88.9 fL (80.0-100.0); Mean Platelet Volume 7.5; Monocytes # (A) 0.4 k/uL (0-1.0); Monocytes % (A) 6 %; Neutrophils # (A) 3.5 k/uL (1.3-7.7); Neutrophils % (A) 56 %; Platelet Count 285 k/uL (150-450); RBC 4.36 m/uL (3.80-5.40); RDW 12.1 % (11.5-15.5); WBC 6.2 k/uL (3.8-10.6)
[2020-07-15 14:10] LABS: Appearance,Urine Clear (Clear); Bacteria,Urine Rare /hpf; Bilirubin,Urine Negative (Negative); Blood,Urine Small (Negative); Color,Urine Yellow; Glucose,Urine (UA) Negative (Negative); Ketones,Urine 2+ (Negative); Leukocyte Esterase,Urine Trace (Negative); Mucus,Urine Few /hpf; Nitrite,Urine Negative (Negative); PH, Urine 6.5 (5.0-8.0); Protein,Urine Trace (Negative); RBC,Urine 1 /hpf (0-5); Specific Gravity,Urine 1.024 (1.001-1.035); Squamous Epithelial Cell,Urine 5 /hpf (0-4); Urobilinogen,Urine <2.0 mg/dL (<2.0); WBC,Urine 1 /hpf (0-5)
[2020-07-15 14:20] LABS: ALT 12 U/L (4-34); AST 20 U/L (14-36); African American GFR (CKD) >90 (>60 ml/min/1.73 sqM); Albumin 4.5 g/dL (3.5-5.0); Alkaline Phosphatase 56 U/L (38-126); Anion Gap 6 mmol/L; Blood Urea Nitrogen 6 mg/dL (7-17); Calcium 9.2 mg/dL (8.4-10.2); Carbon Dioxide 25 mmol/L (22-30); Chloride 100 mmol/L (98-107); Glucose 97 mg/dL (74-99); Lipase 53 U/L (23-300); Non-African American GFR(CKD) >90 (>60 ml/min/1.73 sqM); Sodium 131 mmol/L (137-145); Total Bilirubin 0.5 mg/dL (0.2-1.3); Total Protein 7.8 g/dL (6.3-8.2)
--- NOTE | 2020-07-15 14:29 | XR ---
EXAMINATION TYPE: XR chest 1V portable DATE OF EXAM: 07/15/2020 COMPARISON: 11/28/2019 INDICATION: Shortness of breath TECHNIQUE: Single frontal view of the chest is obtained. FINDINGS: The heart size is normal. The pulmonary vasculature is normal. The lungs are clear. IMPRESSION: 1. No acute pulmonary process.
[2020-07-15 15:00] VITALS: BP 126/79; PULSE 87; RESP 16
== END 2020-07-15 15:02 | disposition home or self-care (01) ==
LOC: EC 12:35
DX: R11.2 Nausea with vomiting, unspecified (principal); R51.9 Headache, unspecified; R05 Cough; R07.9 Chest pain, unspecified; G40.909 Epilepsy, unspecified, not intractable, without status epilepticus; Z20.828 Contact with and (suspected) exposure to other viral communicable diseases; Z79.899 Other long term (current) drug therapy; Z88.0 Allergy status to penicillin
CPT/HCPCS: 36415; 93005; 80053; 83690; 85025; 81001; 81025; 87502; 87635; 71045; 99285; 96374; 96361; U0003; J2405

== ENCOUNTER 2020-08-12 12:46 | Emergency (ER) | payer MEDICARE, BC, OTHER ==
[2020-08-12 12:51] VITALS: RESP 18
[2020-08-12] MEDS ORDERED: KETOROLAC 15 MG/ML 1 ML VIAL IVP STA (13:27)
[2020-08-12] MEDS ORDERED: ONDANSETRON 4 MG/2 ML VIAL IVP STA (13:27)
[2020-08-12] MEDS ORDERED: diphenhydrAMINE 50 MG/ML 1 ML VIAL IVP STA (13:27)
[2020-08-12] MEDS ORDERED: SODIUM CHLORIDE 0.9% 1,000 ML IV STA (13:27)
--- NOTE | 2020-08-12 14:23 | CT ---
EXAMINATION TYPE: CT brain wo con DATE OF EXAM: 08/12/2020 COMPARISON: INDICATION: Headache DLP: 1118.4 mGycm, Automated exposure control for dose reduction was used. CONTRAST: None CT of the brain is performed utilizing 3 mm thick sections through the posterior fossa and 3 mm thick sections through the remaining calvarium. Study is performed within 24 hours of arrival to the hosp [facility]. No abnormal hyperdensity is present to suggest an acute intracranial hemorrhage. No mass lesion is evident. Post Surgical changes are within the anterior inferior left middle cranial fossa. Temporal lobe resection may be present. There is a left temporal parietal craniotomy defect. No acute infarcts are evident. Ventricles and sulci are appropriate for the patient age. Paranasal sinuses and mastoid air cells within the [id number] are clear. IMPRESSIONS: 1. No acute intracranial process.
--- NOTE | 2020-08-12 14:35 | ED ---
Headache HPI - General Chief Complaint: Headache Stated Complaint: headache Time Seen by Provider: 08/12/20 13:05 Mode of arrival: ambulatory Limitations: no limitations - History of Present Illness Initial Comments: Patient is a 25-year-old female presenting to the emergency Department with complaints of a headache for the past 3 days. Patient states she does history of seizures, she received brain surgery at [facility] in 2018 in effort to stop the seizures. Patient states she has not had a seizure since her surgery. She has had intermittent headaches though. She has only had a few follow-ups with her neurosurgeon. Patient states she did speak with their office today and they recommended her going into the ER for evaluation. She states her headaches are mostly on the left side of her head where her surgery was, does extend into her eye sometimes. She does admit to some mild nausea no vomiting. She denies any fever or chills. No dizziness, she denies being . Patient states she does try ibuprofen at home and it does help with the headache but then seems that the headache comes right back. She has no further complaints at this time. Upon arrival to the ER, her vital signs are stable. - Related Data Home Medications Medication Instructions Recorded Confirmed OXcarbazepine [Trileptal] 600 mg PO DAILY 06/28/16 08/12/20 OXcarbazepine [Trileptal] 1,200 mg PO HS 10/12/17 08/12/20 Brivaracetam [Briviact] 200 mg PO HS 07/15/20 08/12/20 PARoxetine [Paxil] 10 mg PO DAILY 07/15/20 08/12/20 Perampanel [Fycompa] 4 mg PO DAILY 07/15/20 08/12/20 Perampanel [Fycompa] 6 mg PO HS 07/15/20 08/12/20 QUEtiapine [SEROquel] 100 mg PO HS 07/15/20 08/12/20 Previous Rx's Medication Instructions Recorded Famotidine [Pepcid] 20 mg PO BID #28 tablet 07/15/20 Ondansetron Odt [Zofran Odt] 4 mg PO Q8HR PRN #10 tab 07/15/20 Allergies Allergy/AdvReac Type Severity Reaction Status Date / Time Penicillins Allergy Unknown Verified 08/12/20 13:53 Childhood Review of Systems ROS Statement: Those systems with pertinent positive or pertinent negative responses have been documented in the HPI. ROS Other: All systems not noted in ROS Statement are negative. Past Medical History Past Medical History: Seizure Disorder Additional Past Medical History / Comment(s): RIGHT DISLOCATIONS History of Any Multi-Drug Resistant Organisms: None Reported Past Surgical History: Tonsillectomy Additional Past Surgical History / Comment(s): RIGHT SHOULDER SURGERY, brain surgery for seizure disorders 2018 Past Psychological History: No Psychological Hx Reported Smoking Status: Never smoker Past Alcohol Use History: None Reported Past Drug Use History: Marijuana General Exam - General Exam Comments Initial Comments: GENERAL: Patient is well-developed and well-nourished. Patient is nontoxic and in no acute distress. HEAD: Atraumatic, normocephalic. EYES: Pupils equal round and reactive to light, extraocular movements intact, sclera anicteric, conjunctiva are normal. Eyelids were unremarkable. ENT: TMs normal, nares patent, oropharynx clear without exudates. Moist mucous membranes. NECK: Normal range of motion, supple without lymphadenopathy or JVD. LUNGS: Unlabored respirations. Breath sounds clear to auscultation bilaterally and equal. No wheezes rales or rhonchi. HEART: Regular rate and rhythm without murmurs, rubs or gallops. ABDOMEN: Soft, nontender, normoactive bowel sounds. No guarding, no rebound. No masses appreciated. : Deferred MUSCULOSKELETAL: Normal extremities with adequate strength and normal range of motion, no pitting or edema. No clubbing or cyanosis. NEUROLOGICAL: Patient is alert and oriented x 3. Motor and sensory are also intact. Cranial nerves II through XII grossly intact. Symmetrical smile. Normal speech, normal gait. PSYCH: Normal mood, normal affect. SKIN: Warm, Dry, normal turgor, no rashes or lesions noted. Limitations: no limitations Course Vital Signs 08/12/20 08/12/20 12:46 14:40 Temperature 99 F 98.0 F Pulse Rate 79 67 Respiratory 18 18 Rate Blood Pressure 119/78 117/69 O2 Sat by Pulse 98 100 Oximetry Medical Decision Making - Medical Decision Making Patient is a 25-year-old female here with a headache for 3 days. She doesn't history of seizures, they did stop in 2018 after she had brain surgery arrival [facility]. She is still on her seizure medication. Her vital signs are stable. Her exam is unremarkable, no acute deficits. I did do CT of her brain, there is no acute no cranial process, there is evidence of temporal lobe resection. He received fluids, typical migraine cocktail and reports improvement in her headache, she states her headache is currently gone, 0 out of 10. I discussed these findings with her. Patient will follow up with her neurologist. Patient is stable for discharge. Patient is in agreement with this plan of care. Return parameters were discussed with the patient and they verbalized understanding. Case discussed with Dr. abad. Disposition Clinical Impression: Headache, Nausea Disposition: HOME SELF-CARE Condition: Stable Instructions (If sedation given, give patient instructions): Acute Headache (ED) Additional Instructions: Please return to the Emergency Department if symptoms worsen or any other concerns. I recommend following up with your neurologist. May continue with either Tylenol or Motrin for future headaches. Is patient prescribed a controlled substance at d/c from ED?: No Referrals: Oumou Montiel MD [Primary Care Provider] - 1-2 days
[2020-08-12 14:45] VITALS: BP 117/69; PULSE 67; TEMP 98
== END 2020-08-12 14:45 | disposition home or self-care (01) ==
LOC: EC 12:46
DX: R51.9 Headache, unspecified (principal); R11.0 Nausea; G40.909 Epilepsy, unspecified, not intractable, without status epilepticus; Z79.899 Other long term (current) drug therapy; Z88.0 Allergy status to penicillin
CPT/HCPCS: 70450; 99284; 96374; 96375 ×2; 96361; J1200; J2405; J1885

== ENCOUNTER 2020-08-27 14:37 | Emergency (ER) | payer MEDICARE, BC, OTHER ==
[2020-08-27] MEDS ORDERED: SODIUM CHLORIDE 0.9% 1,000 ML IV STA (14:46)
[2020-08-27] MEDS ORDERED: ONDANSETRON 4 MG/2 ML VIAL IVP STA (14:46)
--- NOTE | 2020-08-27 14:54 | ED ---
Dizziness HPI - General Chief Complaint: Dizziness Stated Complaint: Vomiting, chest pain Time Seen by Provider: 08/27/20 14:42 Source: patient, RN notes reviewed Mode of arrival: ambulatory Limitations: no limitations - History of Present Illness Initial Comments: Patient is a 25-year-old female that presents to emergency department complaining of one day of nausea vomiting diarrhea and some dizziness. She noted that she does have a history of brain surgery and takes several antiseizure medications. She noted that last night after eating dinner she became nauseous and vomited several times. She noted that she tried to wait it out throughout the night but this morning woke up was nauseous and vomiting and has had several bouts of diarrhea. She'll the last time she came to the ER for the same complaint she was dehydrated. She stated that she only drank 3-4 bottles of water over the last several days. She was in no apparent distress or pain while sitting up in bed interview and exam. She did note some mental fogginess and shakiness. She denied any severe anxiety in the last couple days.. This that she is taking all her medications as prescribed and is following up with her other doctors. He denied any chest pain shortness of br eath constipation hematemesis hematochezia fever fatigue chills. - Related Data Home Medications Medication Instructions Recorded Confirmed OXcarbazepine [Trileptal] 600 mg PO DAILY 06/28/16 08/12/20 OXcarbazepine [Trileptal] 1,200 mg PO HS 10/12/17 08/12/20 Brivaracetam [Briviact] 200 mg PO HS 07/15/20 08/12/20 PARoxetine [Paxil] 10 mg PO DAILY 07/15/20 08/12/20 Perampanel [Fycompa] 4 mg PO DAILY 07/15/20 08/12/20 Perampanel [Fycompa] 6 mg PO HS 07/15/20 08/12/20 QUEtiapine [SEROquel] 100 mg PO HS 07/15/20 08/12/20 Previous Rx's Medication Instructions Recorded Famotidine [Pepcid] 20 mg PO BID #28 tablet 07/15/20 Ondansetron Odt [Zofran Odt] 4 mg PO Q8HR PRN #10 tab 07/15/20 Allergies Allergy/AdvReac Type Severity Reaction Status Date / Time Penicillins Allergy Unknown Verified 08/27/20 14:40 Childhood Review of Systems ROS Statement: Those systems with pertinent positive or pertinent negative responses have been documented in the HPI. ROS Other: All systems not noted in ROS Statement are negative. Past Medical History Past Medical History: Seizure Disorder Additional Past Medical History / Comment(s): RIGHT DISLOCATIONS History of Any Multi-Drug Resistant Organisms: None Reported Past Surgical History: Tonsillectomy Additional Past Surgical History / Comment(s): RIGHT SHOULDER SURGERY, brain surgery for seizure disorders 2017 Past Psychological History: No Psychological Hx Reported Smoking Status: Never smoker Past Alcohol Use History: None Reported Past Drug Use History: Marijuana General Exam Limitations: no limitations General appearance: alert, in no apparent distress Head exam: Present: atraumatic, normocephalic, normal inspection Eye exam: Present: normal appearance, PERRL, EOMI. Absent: scleral icterus, conjunctival injection, periorbital swelling ENT exam: Present: normal exam, mucous membranes moist Neck exam: Present: normal inspection. Absent: tenderness, meningismus, lymphadenopathy Respiratory exam: Present: normal lung sounds bilaterally. Absent: respiratory distress, wheezes, rales, rhonchi, stridor Cardiovascular Exam: Present: regular rate, normal rhythm, normal heart sounds. Absent: systolic murmur, diastolic murmur, rubs, gallop, clicks GI/Abdominal exam: Present: soft, normal bowel sounds. Absent: distended, tenderness, guarding, rebound, rigid Extremities exam: Present: normal inspection, full ROM, normal capillary refill. Absent: tenderness, pedal edema, joint swelling, calf tenderness Back exam: Present: normal inspection Neurological exam: Present: alert, oriented X3, CN II-XII intact Psychiatric exam: Present: normal affect, normal mood, anxious Skin exam: Present: warm, dry, intact, normal color. 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 Normal sinus rhythm, incomplete right bundle branch block, nonspecific T-wave abnormality, abnormal ECG. Medical Decision Making - Medical Decision Making [age] female complaining of dizziness nausea vomiting diarrhea. EKG, necktie maker, 1 L of normal saline bolus, antirheumatic, basic labs ordered. Orthostatic vitals ordered due to patient drinking 3-4 bottles of water over the last several days. Labs and orthostatic vitals unremarkable. Case discussed with Dr. Munroe, was decided the patient could discharge home - Lab Data Result diagrams: 08/27/20 15:20 08/27/20 15:20 Lab Results 08/27/20 08/27/20 08/27/20 Range/Units 15:20 15:20 15:20 WBC 8.5 (3.8-10.6) k/uL RBC 4.65 (3.80-5.40) m/uL Hgb 14.2 (11.4-16.0) gm/dL Hct 42.0 (34.0-46.0) % MCV 90.3 (80.0-100.0) fL MCH 30.4 (25.0-35.0) pg MCHC 33.7 (31.0-37.0) g/dL RDW 12.1 (11.5-15.5) % Plt Count 303 (150-450) k/uL MPV 6.8 Neutrophils % 70 % Lymphocytes % 20 % Monocytes % 5 % Eosinophils % 4 % Basophils % 1 % Neutrophils # 6.0 (1.3-7.7) k/uL Lymphocytes # 1.7 (1.0-4.8) k/uL Monocytes # 0.4 (0-1.0) k/uL Eosinophils # 0.3 (0-0.7) k/uL Basophils # 0.1 (0-0.2) k/uL Sodium 133 L (137-145) mmol/L Potassium 4.1 (3.5-5.1) mmol/L Chloride 97 L (98-107) mmol/L Carbon Dioxide 22 (22-30) mmol/L Anion Gap 14 mmol/L BUN 8 (7-17) mg/dL Creatinine 0.58 (0.52-1.04) mg/dL Est GFR (CKD-EPI)AfAm >90 (>60 ml/min/1.73 sqM) Est GFR (CKD-EPI)NonAf >90 (>60 ml/min/1.73 sqM) Glucose 96 (74-99) mg/dL Calcium 10.4 H (8.4-10.2) mg/dL Total Bilirubin 0.5 (0.2-1.3) mg/dL AST 23 (14-36) U/L ALT 14 (4-34) U/L Alkaline Phosphatase 69 (38-126) U/L Total Protein 9.7 H (6.3-8.2) g/dL Albumin 5.6 H (3.5-5.0) g/dL Amylase 81 (30-110) U/L Lipase 69 (23-300) U/L Urine Color Yellow Urine Appearance Cloudy H (Clear) Urine pH 6.5 (5.0-8.0) Ur Specific [place] 1.030 (1.001-1.035) Urine Protein 1+ H (Negative) Urine Glucose (UA) Negative (Negative) Urine Ketones 3+ H (Negative) Urine Blood Trace H (Negative) Urine Nitrite Negative (Negative) Urine Bilirubin Negative (Negative) Urine Urobilinogen <2.0 (<2.0) mg/dL Ur Leukocyte Esterase Large H (Negative) Urine RBC 5 (0-5) /hpf Urine WBC 16 H (0-5) /hpf Ur Squamous Epith Cells 10 H (0-4) /hpf Urine Mucus Many H (None) /hpf Urine HCG, Qual (Not Detectd) 08/27/20 Range/Units 15:20 WBC (3.8-10.6) k/uL RBC (3.80-5.40) m/uL Hgb (11.4-16.0) gm/dL Hct (34.0-46.0) % MCV (80.0-100.0) fL MCH (25.0-35.0) pg MCHC (31.0-37.0) g/dL RDW (11.5-15.5) % Plt Count (150-450) k/uL MPV Neutrophils % % Lymphocytes % % Monocytes % % Eosinophils % % Basophils % % Neutrophils # (1.3-7.7) k/uL Lymphocytes # (1.0-4.8) k/uL Monocytes # (0-1.0) k/uL Eosinophils # (0-0.7) k/uL Basophils # (0-0.2) k/uL Sodium (137-145) mmol/L Potassium (3.5-5.1) mmol/L Chloride (98-107) mmol/L Carbon Dioxide (22-30) mmol/L Anion Gap mmol/L BUN (7-17) mg/dL Creatinine (0.52-1.04) mg/dL Est GFR (CKD-EPI)AfAm (>60 ml/min/1.73 sqM) Est GFR (CKD-EPI)NonAf (>60 ml/min/1.73 sqM) Glucose (74-99) mg/dL Calcium (8.4-10.2) mg/dL Total Bilirubin (0.2-1.3) mg/dL AST (14-36) U/L ALT (4-34) U/L Alkaline Phosphatase (38-126) U/L Total Protein (6.3-8.2) g/dL Albumin (3.5-5.0) g/dL Amylase (30-110) U/L Lipase (23-300) U/L Urine Color Urine Appearance (Clear) Urine pH (5.0-8.0) Ur Specific [place] (1.001-1.035) Urine Protein (Negative) Urine Glucose (UA) (Negative) Urine Ketones (Negative) Urine Blood (Negative) Urine Nitrite (Negative) Urine Bilirubin (Negative) Urine Urobilinogen (<2.0) mg/dL Ur Leukocyte Esterase (Negative) Urine RBC (0-5) /hpf Urine WBC (0-5) /hpf Ur Squamous Epith Cells (0-4) /hpf Urine Mucus (None) /hpf Urine HCG, Qual Not Detected (Not Detectd) - Radiology Data Radiology results: report reviewed, image reviewed Normal chest no change Disposition Clinical Impression: Dehydration, Nausea & vomiting, Abdominal pain Disposition: HOME SELF-CARE Condition: Stable Instructions (If sedation given, give patient instructions): Dizziness (ED) Additional Instructions: Please return to the Emergency Department if symptoms worsen or any other concerns. Follow-up with primary care 1-2 days. Drink plenty of fluids, eat a bland diet until nausea and vomiting subsided. Take [id number] pain medication as needed for pain management. Is patient prescribed a controlled substance at d/c from ED?: No Referrals: Oumou Montiel MD [Primary Care Provider] - 1-2 days Time of Disposition: 16:59
[2020-08-27 15:37] LABS: Basophils # (A) 0.1 k/uL (0-0.2); Basophils % (A) 1 %; Eosinophils # (A) 0.3 k/uL (0-0.7); Eosinophils % (A) 4 %; HGB 14.2 gm/dL (11.4-16.0); Lymphocytes # (A) 1.7 k/uL (1.0-4.8); Lymphocytes % (A) 20 %; MCH 30.4 pg (25.0-35.0); MCHC 33.7 g/dL (31.0-37.0); MCV 90.3 fL (80.0-100.0); Mean Platelet Volume 6.8; Monocytes # (A) 0.4 k/uL (0-1.0); Monocytes % (A) 5 %; Neutrophils % (A) 70 %; Platelet Count 303 k/uL (150-450); RBC 4.65 m/uL (3.80-5.40); RDW 12.1 % (11.5-15.5); WBC 8.5 k/uL (3.8-10.6)
[2020-08-27 15:51] LABS: ALT 14 U/L (4-34); AST 23 U/L (14-36); African American GFR (CKD) >90 (>60 ml/min/1.73 sqM); Albumin 5.6 g/dL (3.5-5.0); Alkaline Phosphatase 69 U/L (38-126); Amylase 81 U/L (30-110); Anion Gap 14 mmol/L; Blood Urea Nitrogen 8 mg/dL (7-17); Calcium 10.4 mg/dL (8.4-10.2); Carbon Dioxide 22 mmol/L (22-30); Chloride 97 mmol/L (98-107); Glucose 96 mg/dL (74-99); Lipase 69 U/L (23-300); Non-African American GFR(CKD) >90 (>60 ml/min/1.73 sqM); Potassium 4.1 mmol/L (3.5-5.1); Sodium 133 mmol/L (137-145); Total Bilirubin 0.5 mg/dL (0.2-1.3); Total Protein 9.7 g/dL (6.3-8.2)
[2020-08-27 15:58] VITALS: RESP 18
[2020-08-27 15:58] LABS: Appearance,Urine Cloudy (Clear); Bilirubin,Urine Negative (Negative); Blood,Urine Trace (Negative); Color,Urine Yellow; Glucose,Urine (UA) Negative (Negative); Ketones,Urine 3+ (Negative); Leukocyte Esterase,Urine Large (Negative); Mucus,Urine Many /hpf; Nitrite,Urine Negative (Negative); PH, Urine 6.5 (5.0-8.0); Protein,Urine 1+ (Negative); RBC,Urine 5 /hpf (0-5); Squamous Epithelial Cell,Urine 10 /hpf (0-4); Urobilinogen,Urine <2.0 mg/dL (<2.0); WBC,Urine 16 /hpf (0-5)
--- NOTE | 2020-08-27 16:55 | XR ---
EXAMINATION TYPE: XR chest 1V portable DATE OF EXAM: 08/27/2020 COMPARISON: 07/15/2020 HISTORY: Dizziness TECHNIQUE: FINDINGS: Heart and mediastinum are normal. Lungs are clear. Diaphragm is normal. Bony thorax appears normal. IMPRESSION: Normal chest. No change.
[2020-08-27 17:23] VITALS: BP 116/89; PULSE 73; TEMP 98.6
== END 2020-08-27 17:21 | disposition home or self-care (01) ==
LOC: SUPCPDRO 14:37 → EC 14:37
DX: R11.2 Nausea with vomiting, unspecified (principal); E86.0 Dehydration; R10.9 Unspecified abdominal pain; R19.7 Diarrhea, unspecified; G40.909 Epilepsy, unspecified, not intractable, without status epilepticus; Z79.899 Other long term (current) drug therapy; Z88.0 Allergy status to penicillin
CPT/HCPCS: 36415; 93005; 80053; 82150; 83690; 85025; 81001; 81025; 87086; 71045; 99284; 96374; 96361; J2405

== ENCOUNTER 2024-10-20 21:33 | Emergency (ER) | payer OTHER ==
[2024-10-20 21:37] VITALS: RESP 18; TEMP 98.1
--- NOTE | 2024-10-20 21:50 | ED ---
Upper Extremity HPI - General Chief Complaint: Extremity Injury, Upper Stated Complaint: rt shoulder pain Time Seen by Provider: 10/20/24 21:39 Source: patient, RN notes reviewed Mode of arrival: ambulatory Limitations: no limitations - History of Present Illness Initial Comments: 29-year-old female presenting to the emergency department with right shoulder pain. Patient states that it feels like her right shoulder is dislocated. Patient that she was walking through [place] when she felt her shoulder pop out of place. 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 Patient states that she had surgery while she was 14 years old for recurrent shoulder dislocations. Patient states that she has not follow-up with assistance specialist within the past 2 years. Endorses mild paresthesias over the anterior right shoulder. No other acute complaints at this time. - Related Data Home Medications Medication Instructions Recorded Confirmed OXcarbazepine [Trileptal] 600 mg PO DAILY 06/28/16 08/12/20 OXcarbazepine [Trileptal] 1,200 mg PO HS 10/12/17 08/12/20 Brivaracetam [Briviact] 200 mg PO HS 07/15/20 08/12/20 PARoxetine [Paxil] 10 mg PO DAILY 07/15/20 08/12/20 Perampanel [Fycompa] 4 mg PO DAILY 07/15/20 08/12/20 Perampanel [Fycompa] 6 mg PO HS 07/15/20 08/12/20 QUEtiapine [SEROquel] 100 mg PO HS 07/15/20 08/12/20 Previous Rx's Medication Instructions Recorded Famotidine [Pepcid] 20 mg PO BID #28 tablet 07/15/20 Ondansetron Odt [Zofran Odt] 4 mg PO Q8HR PRN #10 tab 07/15/20 Allergies Allergy/AdvReac Type Severity Reaction Status Date / Time Penicillins Allergy Unknown Verified 10/20/24 21:37 Childhood Review of Systems ROS Statement: Those systems with pertinent positive or pertinent negative responses have been documented in the HPI. ROS Other: All systems not noted in ROS Statement are negative. Past Medical History Past Medical History: Seizure Disorder Additional Past Medical History / Comment(s): RIGHT DISLOCATIONS History of Any Multi-Drug Resistant Organisms: None Reported Past Surgical History: Tonsillectomy Additional Past Surgical History / Comment(s): RIGHT SHOULDER SURGERY, brain surgery for seizure disorders 2018 Past Psychological History: No Psychological Hx Reported Smoking Status: Never smoker Past Alcohol Use History: None Reported Past Drug Use History: Marijuana General Exam Limitations: no limitations General appearance: alert, in no apparent distress Neck exam: Present: normal inspection. Absent: tenderness, meningismus, lymphadenopathy Respiratory exam: Present: normal lung sounds bilaterally. Absent: respiratory distress, wheezes, rales, rhonchi, stridor Cardiovascular Exam: Present: regular rate, normal rhythm, normal heart sounds. Absent: systolic murmur, diastolic murmur, rubs, gallop, clicks GI/Abdominal exam: Present: soft, normal bowel sounds. Absent: distended, tenderness, guarding, rebound, rigid Right Shoulder Exam: Present: tenderness, deformity, dislocation. Absent: normal inspection, full ROM, laceration, ecchymosis Hand Wrist exam: Present: normal inspection, full ROM Neuro motor exam: Present: wrist extension intact, thumb opposition intact Vascular: Present: normal capillary refill, radial pulse (2+). Absent: vascular compromise Back exam: Present: normal inspection Course Vital Signs 10/20/24 10/20/24 10/20/24 21:35 22:40 22:45 Temperature 98.1 F Pulse Rate 80 97 78 Respiratory 18 18 18 Rate Blood Pressure 146/89 150/85 135/105 O2 Sat by Pulse 97 99 99 Oximetry 10/20/24 10/20/24 10/20/24 22:50 22:55 23:00 Temperature Pulse Rate 90 98 93 Respiratory 18 18 18 Rate Blood Pressure 135/83 117/72 111/77 O2 Sat by Pulse 97 98 96 Oximetry 10/20/24 10/20/24 23:15 23:27 Temperature Pulse Rate 106 H 104 H Respiratory 18 18 Rate Blood Pressure 123/85 118/80 O2 Sat by Pulse 94 L 94 L Oximetry Procedures - Orthopedic Joint Reduction Joint #1 Consent Obtained: verbal consent Side: right Joint Reduction Location: shoulder Analgesia: procedural sedation (propofol) Shoulder Technique Used (if applicable): traction/counter-traction Post-Reduction Neuro Exam: intact Post-Reduction Vascular Exam: intact Post Reduction X-Ray Obtained: Yes Post Reduction X-Ray Results: reduced Splint Applied: No (sling) Patient Tolerated Procedure: well Medical Decision Making - Medical Decision Making Was pt. sent in by a medical professional or institution (KAJAL Estrada, ONLINE PROGRAM COORDINATOR, urgent care, hospital, or [facility]...) When possible be specific @ -No Did you speak to anyone other than the patient for history (EMS, parent, family, police, friend...)? What history was obtained from this source @ -No Did you review nursing and triage notes (agree or disagree)? Why? @ -I reviewed and agree with nursing and triage notes Were old charts reviewed (outside hosp., previous admission, EMS record, old EKG, old radiological studies, urgent care reports/EKG's, [facility] records)? Report findings @ -No old charts were reviewed Differential Diagnosis (chest pain, altered mental status, abdominal pain women, abdominal pain men, vaginal bleeding, weakness, fever, dyspnea, syncope, headache, dizziness, GI bleed, back pain, seizure, CVA, palpatations, mental health, musculoskeletal)? @ -Differential Musculoskeletal Muscular strain, contusion, ligament sprain, fracture, arthritis, septic arthritis, bursitis, cellulitis, muscle spasm, nerve compression, DVT, arterial occlusion, herpes zoster, electrolyte abnormality, tumor.... This is not meant to be in all inclusive list EKG interpreted by me (3pts min.). @ -None X-rays interpreted by me (1pt min.). @ -X-ray of the right shoulder reveals a dislocation of the right humeral head from the glenoid Postreduction x-ray right shoulder relocated in correct anatomical position CT interpreted by me (1pt min.). @ -None done U/S interpreted by me (1pt. min.). @ -None done What testing was considered but not performed or refused? (CT, X-rays, U/S, labs)? Why? @ -None What meds were considered but not given or refused? Why? @ -None Did you discuss the management of the patient with other professionals (professionals i.e. KAJAL Estrada, ONLINE PROGRAM COORDINATOR, lab, RT, psych nurse, manager social media, content director, teacher, transportation security officer, bilingual patient support caseworker)? Give summary @ -No Was smoking cessation discussed for >3mins.? @ -No Was critical care preformed (if so, how long)? @ -No Were there social determinants of health that impacted care today? How? (Homelessness, low income, unemployed, alcoholism, drug addiction, transportation, low edu. Level, literacy, decrease access to med. care, retirement, rehab)? @ -No Was there de-escalation of care discussed even if they declined (Discuss DNR or withdrawal of care, Hospice)? DNR status @ -No What co-morbidities impacted this encounter? (DM, HTN, Smoking, COPD, CAD, Cancer, CVA, ARF, Chemo, Hep., AIDS, mental health diagnosis, sleep apnea, morbid obesity)? @ -None Was patient admitted / discharged? Hospital course, mention meds given and route, prescriptions, significant lab abnormalities, going to OR and other pertinent info. @ -Discharge. 29-year-old female presenting with right shoulder pain. There is obvious deformity on exam with concern for dislocation. X-ray has confirmed dislocated shoulder. Traction countertraction technique used and assistance with my attending, Dr. Church, with postreduction x-ray successful. Patient is placed in a sling and instructed follow-up with assistance specialist. Postred uction neurovascular exam intact. Undiagnosed new problem with uncertain prognosis? @ -No Drug Therapy requiring intensive monitoring for toxicity (Heparin, Nitro, Insulin, Cardizem)? @ -No Were any procedures done? @ -conscious sedation with propofol shoulder reduction Diagnosis/symptom? @ -shoulder dislocation Acute, or Chronic, or Acute on Chronic? @ -acute Uncomplicated (without systemic symptoms) or Complicated (systemic symptoms)? @ -uncomplicated Side effects of treatment? @ -No Exacerbation, Progression, or Severe Exacerbation? @ -No Poses a threat to life or bodily function? How? (Chest pain, [place], [place], pneumonia, PE, COPD, DKA, ARF, appy, cholecystitis, CVA, Diverticulitis, Homicidal, Suicidal, threat to staff... and all critical care pts) @ -No Disposition Clinical Impression: Dislocation of shoulder, right, closed Disposition: HOME SELF-CARE Condition: Stable Instructions (If sedation given, give patient instructions): Shoulder Dislocation (ED), Procedural Sedation (ED) Additional Instructions: Please return to the Emergency Department if symptoms worsen or any other concerns. Follow-up with assistance specialist. Is patient prescribed a controlled substance at d/c from ED?: No Referrals: None,Stated [Primary Care Provider] - 1-2 days Joseph Leon MD [STAFF PHYSICIAN] - 1-2 days Time of Disposition: 23:05
--- NOTE | 2024-10-20 22:04 | XR ---
EXAMINATION TYPE: XR shoulder complete RT DATE OF EXAM: 10/20/2024 9:57 PM COMPARISON: 03/19/2020 CLINICAL INDICATION: Female, 29 years old with history of pain, deformity, Pain TECHNIQUE: XR shoulder complete RT view(s) obtained. FINDINGS: There is dislocation of the humeral head in relation to the glenoid. No acute fracture evident The acromio-clavicular junction is normal. Remaining osseous structures appear intact A follow up study can be performed 7-10 days from acute trauma for continued pain. MRI can be perfor med if soft tissue evaluation would be of benefit. IMPRESSION: 1. Dislocation of the right humeral head from the glenoid [facility], , 10/20/2024 10:01 PM
[2024-10-20] MEDS: HYDROmorphone 1 MG/ML 1 ML SYRINGE IVP STA (22:30)
[2024-10-20] MEDS: KETOROLAC 15 MG/ML 1 ML VIAL IVP STA (22:37)
[2024-10-20] MEDS: ONDANSETRON 4 MG/2 ML VIAL IVP STA (22:40)
[2024-10-20] MEDS: PROPOFOL 10 MG/ML 20 ML VIAL IV ONE ×2 (22:41→23:26)
[2024-10-20 23:32] VITALS: BP 118/80; PULSE 104
--- NOTE | 2024-10-21 00:30 | XR ---
EXAM: XR Right Shoulder Complete, 2 or More Views CLINICAL HISTORY: ITS.REASON XR Reason: Post Reduction TECHNIQUE: Two or more views of the right shoulder. COMPARISON: Earlier study of 10/20/2024. FINDINGS: Bones/joints: The right shoulder joint has returned to normal anatomic position. Right acromial clavicular joints unremarkable. Regional ribs, soft tissues, the scapular unremarkable. No acute fracture. No dislocation. Soft tissues: See above. IMPRESSION: Congregation of normal anatomic alignment about the right shoulder joint.
== END 2024-10-20 23:37 | disposition home or self-care (01) ==
LOC: EC 21:33
DX: S43.004A Unspecified dislocation of right shoulder joint, initial encounter (principal); Z88.0 Allergy status to penicillin; X50.9XXA Other and unspecified overexertion or strenuous movements or postures, initial encounter; Y93.01 Activity, walking, marching and hiking
CPT/HCPCS: 73020; 73030; 99283; 96374; 96375 ×2; 23650; J2405; J1171; J1885; J2704